=== PATIENT | female | born 1965 | race Two or more races ===

== ENCOUNTER 2017-03-26 01:58 | Emergency (ER) | payer SELFPAY ==
[~2017-03-26] VITALS: Ht 170.2 cm; Wt 86.2 kg
[~2017-03-26 01:58] MED LIST: CIPROFLOXACIN500 M2 ORAL; IRON SUPPLEMEN325 M1 PO
[2017-03-26 02:30] VITALS: BP 129/78
[2017-03-26] MEDS ORDERED: IBUPROFEN600 MG ORAL (02:37)
[2017-03-26] MEDS ORDERED: ROBAXIN-750750 MG PO (02:37)
[2017-03-26] MEDS ORDERED: Methocarbamol 750mg tab ORAL ONE (02:45)
[2017-03-26 04:00] VITALS: BP 125/74
[2017-03-26 04:05] VITALS: BP 125/74
--- NOTE | 2017-03-26 16:38 | Emergency Room Report ---
History of Present Illness General Chief Complaint: Neck Pain Source: Patient Present Illness HPI 51 yo F pw L sided neck and shoulder pain x 1 day. worse with movement denies trauma. feels like muscle spasms. has had this in the past. no chest pain sob. no arm weakness or numbness. no sousa/blurry vision. no trauma Allergies: Coded Allergies: No Known Allergies (Unverified , 01/05/14) Patient History Past Medical History: see triage record Past Surgical History: none Pertinent Family History: none Last Menstrual Period: today Reviewed Nursing Documentation: PMH: Agreed, PSxH: Agreed Nursing Documentation-PMH Hx Asthma: Yes Review of Systems All Other Systems: negative except mentioned in HPI Physical Exam Vital Signs Date Time Temp Pulse Resp B/P (MAP) Pulse Ox O2 Delivery O2 Flow Rate FiO2 03/26/17 02:09 98.2 91 18 129/78 97 Room Air Sp02 EP Interpretation: reviewed, normal General Appearance: normal inspection, well appearing, no apparent distress, alert, GCS 15, non-toxic Head: normocephalic, atraumatic Eyes: bilateral eye normal inspection, bilateral eye PERRL, bilateral eye EOMI ENT: normal ENT inspection, normal pharynx, normal voice, moist mucus membranes Neck: supple, other - FROM, paraspinal L sided cervical tenderness no midline tendenress. tenderness along deltoid, no torticollis Respiratory: normal inspection, lungs clear, normal breath sounds, no respiratory distress, no retraction, no wheezing, speaking full sentences, chest symmetrical Cardiovascular #1: normal inspection, regular rate, rhythm, no edema, normal capillary refill Cardiovascular #2: 2+ radial (R), 2+ radial (L) Gastrointestinal: normal inspection, non tender, soft, non-distended, no guarding Musculoskeletal: normal inspection, back normal, normal range of motion, non- tender Neurologic: normal inspection, alert, oriented x3, responsive, motor strength/ tone normal, sensory intact, normal gait, speech normal Psychiatric: normal inspection, judgement/insight normal, memory normal Skin: normal inspection, normal color, no rash, warm/dry, well hydrated, normal turgor Medical Decision Making Diagnostic Impression: Primary Impression: Neck pain ER Course 51 yo F with L sided neck pain likely musculoskeletal/muscular spasm not c/w CA dissection / fracture / cord compression given absence of neurological signs/sx, pt appears nontoxic Plan Motrin/robaxin ER course Pt feels much better with meds. better rom Dispo: PT DCed to home with pMD fu Last Vital Signs Date Time Temp Pulse Resp B/P (MAP) Pulse Ox O2 Delivery O2 Flow Rate FiO2 03/26/17 04:05 98.1 77 17 125/74 100 Room Air Disposition: HOME, SELF-CARE Condition: Improved Scripts Methocarbamol* (ROBAXIN-750*) 750 Mg Tablet 750 MG PO QID, #28 TAB 0 Refills Prov: Miller Grewal M.D. 03/26/17 Ibuprofen* (MOTRIN*) 600 Mg Tablet 600 MG ORAL Q8H Y for For Pain, #30 TAB 0 Refills Prov: Miller Grewal M.D. 03/26/17 Referrals: NOT CHOSEN [facility]/,REFERRING (PCP) Patient Instructions: Musculoskeletal Pain Miller Grewal M.D. Mar 26, 2017 16:38
== END 2017-03-26 04:05 | disposition home or self-care (01) ==
LOC: EMR 02:25
DX: M54.2 Cervicalgia (principal); J45.909 Unspecified asthma, uncomplicated
CPT/HCPCS: 99284

== ENCOUNTER 2018-01-01 00:22 | Emergency (ER) | payer SELFPAY ==
[~2018-01-01] VITALS: Ht 165.1 cm; Wt 86.2 kg
[~2018-01-01 00:22] MED LIST changes: +IBUPROFEN600 MG ORAL; +ROBAXIN-750750 MG PO
[2018-01-01 01:28] VITALS: BP 123/76
--- NOTE | 2018-01-01 01:32 | Emergency Room Report ---
History of Present Illness General Chief Complaint: General Complaint Source: Patient Present Illness HPI Patient presents with generalize pain. She had triage left without being seen. I did not see the patient. Allergies: Coded Allergies: No Known Allergies (Unverified , 01/05/14) Patient History Last Menstrual Period: none Nursing Documentation-[facility] Hx Asthma: Yes Physical Exam Vital Signs Date Time Temp Pulse Resp B/P (MAP) Pulse Ox O2 Delivery O2 Flow Rate FiO2 01/01/18 00:41 98.1 66 18 123/76 100 Ambu-Bag 98.1 Medical Decision Making Diagnostic Impression: Primary Impression: Episode of generalized weakness Last Vital Signs Date Time Temp Pulse Resp B/P (MAP) Pulse Ox O2 Delivery O2 Flow Rate FiO2 01/01/18 01:28 98.1 66 18 123/76 100 Ambu-Bag 98.1 Status: unchanged Disposition: LEFT W/OUT BEING SEEN Condition: Stable GERMAN WHITTAKER M.D. Jan 01, 2018 01:32
== END 2018-01-01 01:00 | disposition left against medical advice (07) ==
LOC: EMR 00:50
DX: R52 Pain, unspecified (principal); Z53.21 Procedure and treatment not carried out due to patient leaving prior to being seen by health care provider; J45.909 Unspecified asthma, uncomplicated
CPT/HCPCS: 99281

== ENCOUNTER 2019-02-21 20:38 | Emergency (ER) | payer MEDICAID ==
[~2019-02-21] VITALS: Ht 154.9 cm; Wt 88.5 kg
[2019-02-21 20:48] VITALS: BP 126/77
[2019-02-21] MEDS ORDERED: FLUTICASONE PRO16 G1 NASAL (20:48)
[2019-02-21] MEDS ORDERED: ALLEGRA ALLERG180 M1 PO (20:48)
[2019-02-21] MEDS ORDERED: PREDNISONE20 MG ORAL (20:48)
--- NOTE | 2019-02-21 20:50 | NUR ---
ED Nurse Note: pt walked in to ED C/O upp ABD julia for one day. pt stated she took mylanta but has no relief. pt is alert x4. VSS.
[2019-02-21] MEDS ORDERED: Omnipaque-300 100ml vial INJ PRN (21:15)
[2019-02-21] MEDS ORDERED: Dicyclomine HCl 10mg/5ml oral soln ORAL ONE (21:15)
[2019-02-21] MEDS ORDERED: Mylanta II UD 30ml ORAL ONE (21:15)
[2019-02-21] MEDS ORDERED: Lidocaine 2% Visc 15ml soln ORAL ONE (21:15)
[2019-02-21 21:39] LABS: APPEARANCE,URINE SLIGHTLY CLOUDY; BILIRUBIN, URINE NEGATIVE (NEGATIVE); COLOR,URINE PALE YELLOW; GLUCOSE, URINE (UA) NEGATIVE (NEGATIVE); KETONES,URINE NEGATIVE (NEGATIVE); LEUKOCYTE ESTERASE ,URINE 3+ (NEGATIVE); NITRITE,URINE NEGATIVE (NEGATIVE); PH,URINE 8 (4.5-8.0); PROTEIN,URINE NEGATIVE (NEGATIVE); UROBILINOGEN,URINE NORMAL MG/DL (0.0-1.0)
[2019-02-21 21:39] LABS: ANION GAP 8 mmol/L (5-15); BLOOD UREA NITROGEN 9 mg/dL (7-18); CARBON DIOXIDE 29 MMOL/L (21-32); CHLORIDE 102 MMOL/L (98-107); CREATININE 0.8 MG/DL (0.55-1.30); POTASSIUM 3.7 MMOL/L (3.5-5.1); SODIUM 139 MMOL/L (136-145)
[2019-02-21 21:40] LABS: BASOPHILS % (AUTO) 0.9 % (0.0-2.0); EOSINOPHILS % (AUTO) 3.1 % (0.0-3.0); HEMATOCRIT 45.5 % (37.0-47.0); HEMOGLOBIN 15.3 G/DL (12.0-16.0); LYMPHOCYTES % (AUTO) 40.8 % (20.0-45.0); MEAN CORPUSCULAR VOLUME 93 FL (80-99); MONOCYTES % (AUTO) 11.2 % (1.0-10.0); PLATELET COUNT 213 K/UL (150-450); RED BLOOD COUNT 4.89 M/UL (4.20-5.40); RED CELL DISTRIBUTION WIDTH 11.1 % (11.6-14.8); WHITE BLOOD COUNT 8.9 K/UL (4.8-10.8)
[2019-02-21 21:46] LABS: ALANINE AMINOTRANSFERASE 65 U/L (12-78); ALBUMIN 3.4 G/DL (3.4-5.0); ALBUMIN/GLOBULIN RATIO 0.8 (1.0-2.7); ALKALINE PHOSPHATASE 257 U/L (46-116); ASPARTATE AMINO TRANSFERASE 30 U/L (15-37); BILIRUBIN,TOTAL 0.4 MG/DL (0.2-1.0); INR 0.9 (0.9-1.1)
--- NOTE | 2019-02-21 22:05 | NUR ---
ED Nurse Note: pt went to x ray
--- NOTE | 2019-02-21 22:34 | Diagnostic Imaging Report ---
Clinical Indication: Upper abdominal pain beginning earlier today Technique: No oral contrast utilized, per emergency room physician request IV administration nonionic contrast. Venous phase spiral acquisition obtained through the abdomen and pelvis. Multiplanar reconstructions were generated. Total dose length product 1886 mGycm. CTDIvol(s) 30 mGy. Dose reduction achieved using automated exposure control Comparison: none Findings: The appendix is normal. No evidence of colonic diverticulosis or diverticulitis. No small bowel distention. No free or loculated intraperitoneal gas or fluid is evident. The distal esophagus, stomach, duodenum are unremarkable. The gallbladder is nondistended. The liver, bile ducts, pancreas, spleen, adrenals, kidneys are unremarkable. The uterus is enlarged and heterogeneous, consistent with fibroids. There is an intrauterine device in place, situated somewhat low. No pelvic mass or adenopathy otherwise. The bones are unremarkable. The included lung bases are clear. Impression: No acute abnormality. Intrauterine device in place, somewhat low within the uterus This agrees with the preliminary interpretation provided overnight by [facility] teleradiology service. The CT scanner at [facility] is accredited by the [employer] and the scans are performed using protocols designed to limit radiation exposure to as low as reasonably achievable to attain images of sufficient resolution adequate for diagnostic evaluation.
[2019-02-21] MEDS ORDERED: NAPROXEN250 MG ORAL (23:28)
--- NOTE | 2019-02-21 23:32 | Emergency Room Report ---
History of Present Illness General Chief Complaint: Abdominal Pain Source: Patient Present Illness HPI 53-year-old female presents with generalized abdominal pain x1 day no aggravating or alleviating factors severity is mild, intermittent, squeezing/ achy in nature no nausea no vomiting no chest pain no shortness of breath, no diarrhea patient presents for evaluation of her abdominal pain. Allergies: Coded Allergies: No Known Allergies (Unverified , 01/05/14) Patient History Past Medical History: see triage record Now: No Reviewed Nursing Documentation: PMH: Agreed; PSxH: Agreed Nursing Documentation-PMH Past Medical History: No History, Except For Hx Asthma: Yes Review of Systems All Other Systems: negative except mentioned in HPI Physical Exam Vital Signs Date Time Temp Pulse Resp B/P (MAP) Pulse Ox O2 Delivery O2 Flow Rate FiO2 02/21/19 20:44 99.0 101 14 128/77 (94) 96 Room Air 02/21/19 20:48 98 Sp02 EP Interpretation: reviewed, normal General Appearance: well appearing, no apparent distress, alert Head: normocephalic, atraumatic Eyes: bilateral eye PERRL, bilateral eye EOMI ENT: uvula midline, moist mucus membranes Neck: supple, thyroid normal, supple/symm/no masses Respiratory: lungs clear, no respiratory distress, no retraction, no accessory muscle use Cardiovascular #1: normal peripheral pulses, regular rate, rhythm, no edema, no gallop, no murmur Gastrointestinal: non tender, soft, no guarding, no rebound Musculoskeletal: normal inspection Neurologic: alert, oriented x3 Psychiatric: mood/affect normal Skin: no rash, warm/dry Medical Decision Making ER Course 53-year-old female presents with generalized abdominal pain, initially upper, has since resolved while in the ED without any acute intervention no acute pain meds were given. Differential diagnosis includes diverticulitis, appendicitis, cholecystitis Patient found to have a malpositioned IUD that is moving around, possible referred pain Repeat abdominal exam patient is soft nontender Will disposition patient home with return precautions, counseled patient to follow-up with [facility] Laboratory Tests Test 02/21/19 21:12 02/21/19 21:14 Urine Color Pale yellow Urine Appearance Slightly cloudy Urine pH 8 (4.5-8.0) Urine Specific Spring 1.010 (1.005-1.035) Urine Protein Negative (NEGATIVE) Urine Glucose (UA) Negative (NEGATIVE) Urine Ketones Negative (NEGATIVE) Urine Blood Negative (NEGATIVE) Urine Nitrite Negative (NEGATIVE) Urine Bilirubin Negative (NEGATIVE) Urine Urobilinogen Normal MG/DL (0.0-1.0) Urine Leukocyte Esterase 3+ (NEGATIVE) H Urine RBC 0-2 /HPF (0 - 2) Urine WBC 10-15 /HPF (0 - 2) H Urine Squamous Epithelial Cells Moderate /LPF (NONE/OCC) H Urine Bacteria Few /HPF (NONE) White Blood Count 8.9 K/UL (4.8-10.8) Red Blood Count 4.89 M/UL (4.20-5.40) Hemoglobin 15.3 G/DL (12.0-16.0) Hematocrit 45.5 % (37.0-47.0) Mean Corpuscular Volume 93 FL (80-99) Mean Corpuscular Hemoglobin 31.3 PG (27.0-31.0) H Mean Corpuscular Hemoglobin Concent 33.7 G/DL (32.0-36.0) Red Cell Distribution Width 11.1 % (11.6-14.8) L Platelet Count 213 K/UL (150-450) Mean Platelet Volume 7.5 FL (6.5-10.1) Neutrophils (%) (Auto) 44.0 % (45.0-75.0) L Lymphocytes (%) (Auto) 40.8 % (20.0-45.0) Monocytes (%) (Auto) 11.2 % (1.0-10.0) H Eosinophils (%) (Auto) 3.1 % (0.0-3.0) H Basophils (%) (Auto) 0.9 % (0.0-2.0) Prothrombin Time 9.4 SEC (9.30-11.50) Prothrombin Time INR 0.9 (0.9-1.1) PTT 24 SEC (23-33) Sodium Level 139 MMOL/L (136-145) Potassium Level 3.7 MMOL/L (3.5-5.1) Chloride Level 102 MMOL/L (98-107) Carbon Dioxide Level 29 MMOL/L (21-32) Anion Gap 8 mmol/L (5-15) Blood Urea Nitrogen 9 mg/dL (7-18) Creatinine 0.8 MG/DL (0.55-1.30) Estimate Glomerular Filtration Rate > 60 mL/min (>60) Glucose Level 117 MG/DL (74-106) H Calcium Level 9.0 MG/DL (8.5-10.1) Total Bilirubin 0.4 MG/DL (0.2-1.0) Aspartate Amino Transferase (AST) 30 U/L (15-37) Alanine Aminotransferase (ALT) 65 U/L (12-78) Alkaline Phosphatase 257 U/L (46-116) H Troponin I 0.000 ng/mL (0.000-0.056) Total Protein 7.7 G/DL (6.4-8.2) Albumin 3.4 G/DL (3.4-5.0) Globulin 4.3 g/dL Albumin/Globulin Ratio 0.8 (1.0-2.7) L Lipase 236 U/L (73-393) EKG Diagnostic Results EKG Time: 21:18 EP Interpretation: Sinus tachycardia, rate [address] elevations, normal axis QTC 430 Chest X-Ray Diagnostic Results Chest X-Ray Diagnostic Results : Chest X-Ray Ordered: Yes # of Views/Limited/Complete: 1 View Indication: Other - abdominal pain EP Interpretation: Yes Interpretation: no consolidation, no effusion, no pneumothorax, no acute cardiopulmonary disease Impression: No acute disease Electronically Signed by: Dewey Christianson MD CT/MRI/US Diagnostic Results CT/MRI/US Diagnostic Results : Impression Procedure: CT Abdomen Pelvis w/Contrast CT ABDOMEN + PELVIS With Contrast: Lower lungs: No acute findings. Liver: Unremarkable. Gallbladder: Unremarkable. Spleen, pancreas, and adrenal glands: No acute findings. Kidneys: No hydronephrosis or obstructive nephrolithiasis. Bowel: No bowel obstruction. Appendix: No convincing appendicitis. Bladder: Unremarkable. Pelvic organs: IUD appears to be placed in the lower uterine segment cervix area. Correlate with IUD malpositioning. Vessels: No aortic aneurysm. Bones: No acute fracture. Dictated By: SANGEETHA MCALLISTER M.D. Electronically Signed By: Signed Date/Time CC: Last Vital Signs Date Time Temp Pulse Resp B/P (MAP) Pulse Ox O2 Delivery O2 Flow Rate FiO2 02/21/19 20:48 98.8 98 16 126/77 97 Room Air 02/21/19 20:48 98 Disposition: HOME, SELF-CARE Condition: Stable Scripts Naproxen* (NAPROSYN*) 250 Mg Tablet 250 MG ORAL BID PRN for For Pain, #20 TAB 0 Refills Prov: Dewey Christianson MD 02/21/19 Referrals: NOT CHOSEN IPA/MD,REFERRING (PCP) [facility] Suhas Krzysztofjose david [facility] Patient Instructions: Abdominal Pain, Adult Additional Instructions: The patient was provided with discharge instructions, notified to follow-up with a primary care doctor and or specialist in the next 24-48 hours, and to return to the ED if they have worsening of their symptoms. Please note that this report is being documented using DRAGON technology. This can lead to erroneous entry secondary to incorrect interpretation by the dictating instrument. PLEASE HAVE IUD REMOVED AT [facility], PLEASE FOLLOW-UP WITH [facility] Dewey Torres MD Feb 21, 2019 23:32
[2019-02-21 23:38] VITALS: BP 135/84
--- NOTE | 2019-02-21 23:38 | NUR ---
ER DISCHARGE NOTE: Patient is cleared to be discharged per ERMD, pt is aox4, on room air, with stable vital signs. pt was given dc and prescription instructions, pt was able to verbalize understanding, pt id band and iv site removed without complications. pt is able to ambulate with steady gait. pt took all belongings.
--- NOTE | 2019-02-22 14:49 | Cardiology Report ---
APPROVED REPORT EKG Measurement Heart [id number] Sinus tachycardia Otherwise normal ECG
--- NOTE | 2019-02-22 17:19 | Diagnostic Imaging Report ---
Indication: Chest pain Technique: One view of the chest Comparison: none Findings: Lungs and pleural spaces are clear. Heart size is normal. Impression: No acute process
== END 2019-02-21 23:38 | disposition home or self-care (01) ==
LOC: EMR 21:25
DX: R10.84 Generalized abdominal pain (principal); R07.9 Chest pain, unspecified; T83.89XA Other specified complication of genitourinary prosthetic devices, implants and grafts, initial encounter; Y84.8 Other medical procedures as the cause of abnormal reaction of the patient, or of later complication, without mention of misadventure at the time of the procedure; Y92.9 Unspecified place or not applicable
CPT/HCPCS: 36415; 71045; 74177; 80053; 81003; 83690; 84484; 85025; 85610; 85730; 87086; 93005; 96361; 96374; 96375; J2405; Q9967; S0028; Z7502; 99284

== ENCOUNTER 2019-03-30 13:35 | Emergency (ER) | payer MEDICAID ==
[~2019-03-30] VITALS: Ht 167.6 cm; Wt 77.1 kg
[~2019-03-30 13:35] MED LIST changes: +ALLEGRA ALLERG180 M1 PO; +FLUTICASONE PRO16 G1 NASAL; +NAPROXEN250 MG ORAL; +PREDNISONE20 MG ORAL
[2019-03-30] MEDS ORDERED: NKM (13:48)
--- NOTE | 2019-03-30 14:00 | NUR ---
ED Nurse Note: pt walked in to ER from home due to general body ache 03/09. pt aao x4 and ambulatory. skin clean and intact. calm and cooperative. no acute distress noted at this time. VSS as documented. pt denied trauma.
[2019-03-30 14:25] VITALS: BP 115/75
--- NOTE | 2019-03-30 14:35 | Emergency Room Report ---
History of Present Illness General Chief Complaint: Pain Source: Patient Present Illness HPI 53-year-old female presents to the emergency department complaining of persistent 8 out of 10 severity generalized myalgias x1 week. Patient denies any other symptoms she denies fevers, chills, nausea, vomiting, cough, nasal congestion or headaches. Patient denies significant past medical history she states she is not prescribed any medications. Patient denies strenuous activities. Patient reports she has been taking magnesium this week in an attempt to relieve her symptoms however she states her symptoms have remained the same if not slightly worse and she also began having loose stools 2 days ago. Patient denies blood in the stools or black tarry stools. Patient denies weakness or fatigue. She denies history of arthritis. No other aggravating or relieving factors. Patient denies having any other additional symptoms. Denies chest pain, abdominal pain, shortness of breath or dizziness. Allergies: Coded Allergies: No Known Allergies (Unverified , 01/05/14) Patient History Past Medical History: see triage record Past Surgical History: none Pertinent Family History: none Last Menstrual Period: 2013 Now: No Reviewed Nursing Documentation: PMH: Agreed; PSxH: Agreed Nursing Documentation-PMH Past Medical History: No History, Except For Hx Asthma: Yes Review of Systems All Other Systems: negative except mentioned in HPI Physical Exam Vital Signs Date Time Temp Pulse Resp B/P (MAP) Pulse Ox O2 Delivery O2 Flow Rate FiO2 03/30/19 13:46 98.1 95 16 115/75 (88) 96 Room Air Sp02 EP Interpretation: reviewed, normal General Appearance: no apparent distress, alert, GCS 15, non-toxic Head: normocephalic, atraumatic Eyes: bilateral eye normal inspection, bilateral eye PERRL ENT: hearing grossly normal, normal voice Neck: full range of motion, no meningismus, no bony tend Respiratory: chest non-tender, lungs clear, normal breath sounds, no accessory muscle use, no wheezing, speaking full sentences Cardiovascular #1: regular rate, rhythm Gastrointestinal: normal bowel sounds, non tender, soft, non-distended, no guarding Genitourinary: normal inspection, no CVA tenderness Musculoskeletal: back normal, gait/station normal, normal range of motion, non- tender Neurologic: alert, oriented x3, responsive, motor strength/tone normal, sensory intact, speech normal, grossly normal Psychiatric: judgement/insight normal Lymphatic: no adenopathy Medical Decision Making PA Attestation Dr. Adan is my supervising Physician whom patient management has been discussed with. Diagnostic Impression: Primary Impression: Myalgia ER Course 53-year-old female presents to the emergency department complaining of persistent 8 out of 10 severity generalized myalgias x1 week. Patient denies any other symptoms she denies fevers, chills, nausea, vomiting, cough, nasal congestion or headaches. Patient denies significant past medical history she states she is not prescribed any medications. Patient denies strenuous activities. Patient reports she has been taking magnesium this week in an attempt to relieve her symptoms however she states her symptoms have remained the same if not slightly worse and she also began having loose stools 2 days ago. Patient denies blood in the stools or black tarry stools. Patient denies weakness or fatigue. She denies history of arthritis. No other aggravating or relieving factors. Patient denies having any other additional symptoms. Denies chest pain, abdominal pain, shortness of breath or dizziness. Ddx considered: viral syndrome, epidural abscess, fracture, sprain/strain, meningitis, spinal chord injur, myalgia, autoimmune disorder, calcium or potassium abnormality, medication SE just to name a few. Vital signs reviewed and are during ED visit. Pt. is afebrile with no signs of infection No new symptoms, and denies recent trauma. No saddle anesthesia noted, Pt. denies incontinence Neurovascular is intact- No evidence of neurological deficit. FROM with pain. Pt. is ambulatory. No specific localized ttp. ORDERS: none warranted at this time. INTERVENTIONS: - pt. declines interventions and requests just an rx. D/W Pt. conservative treatment and pcp follow up in 3-5 days. refrain from strenuous activities. Pt .given ED return precautions for worsening or new symptoms. DISCHARGE: At this time pt. is stable for d/c to home. Will provide printed patient care instructions, and any necessary prescriptions. Care plan and follow up instructions have been discussed with the patient prior to discharge. Last Vital Signs Date Time Temp Pulse Resp B/P (MAP) Pulse Ox O2 Delivery O2 Flow Rate FiO2 03/30/19 14:25 98.1 81 16 115/75 96 Room Air Disposition: HOME, SELF-CARE Condition: Stable Referrals: [facility],REFERRING (PCP) Patient Instructions: Muscle Pain, Adult Additional Instructions: Take medications as directed. Follow up with a Primary Care Provider in 3-5 days, even if your symptoms have resolved. --Please review list of primary care clinics, if you do not already have a primary care provider Return sooner to ED if new symptoms occur, or current symptoms become worse. Do not drink alcohol, drive, or operate heavy machinery while taking Robaxin ( Muscle Relaxers) as this may cause drowsiness. - Please note that this Emergency Department Report was dictated using [employer]ood[employer]papier mache molder technology software, occasionally this can lead to erroneous entry secondary to interpretation by the dictation equipment. Ana Cristina Villagomez Mar 30, 2019 14:35
[2019-03-30] MEDS ORDERED: IBUPROFEN600 MG ORAL (14:36)
[2019-03-30] MEDS ORDERED: ROBAXIN-750750 MG PO (14:36)
[2019-03-30 14:45] VITALS: BP 122/70
--- NOTE | 2019-03-30 14:45 | NUR ---
ER DISCHARGE NOTE: Patient is cleared to be discharged per PA, pt is aox4, on room air, with stable vital signs. pt left without getting her DC papers. pt is able to ambulate with steady gait. pt took all belongings.
== END 2019-03-30 14:45 | disposition home or self-care (01) ==
LOC: EMR 14:20
DX: M79.10 Myalgia, unspecified site (principal); J45.909 Unspecified asthma, uncomplicated
CPT/HCPCS: 99282

== ENCOUNTER 2019-08-17 16:46 | Emergency (ER) | payer MEDICAID, OTHER ==
[~2019-08-17] VITALS: Ht 170.2 cm; Wt 72.6 kg
[~2019-08-17 16:46] MED LIST changes: +NKM
[2019-08-17 16:50] VITALS: BP 97/66
--- NOTE | 2019-08-17 18:19 | Emergency Room Report ---
History of Present Illness General Chief Complaint: Flu Like Symptoms Source: Patient Present Illness HPI 53-year-old female presents to the emergency department complaining of 4 out of 10 severity sore throat, generalized body aches, persistent dry cough x4 days. Patient reports he has a history of asthma and she has been using her inhaler more than normal. Patient denies severe wheezing, dyspnea or bluish color to the lips. She reports she is vaccinated and is up-to-date with vaccinations except for this years flu vaccine. She states she just returned from [place] 4 days ago. She denies fevers or chills. She denies headache, neck pain/ stiffness, photophobia, chest pain or palpitations. She reports nasal congestion and sinus pressure. COVID-19 risk:Contact w/high r: No COVID-19 risk:Travel to [facility]: Yes Has patient experienced carmen: Yes Coronavirus symptoms experienc: Cough, Flu-Like Symptoms Allergies: Coded Allergies: No Known Allergies (Unverified , 01/05/14) Patient History Past Medical History: see triage record Past Surgical History: none Pertinent Family History: none Now: No Reviewed Nursing Documentation: PMH: Agreed; PSxH: Agreed Nursing Documentation-PMH Past Medical History: No History, Except For Hx Asthma: Yes Review of Systems All Other Systems: negative except mentioned in HPI Physical Exam Vital Signs Date Time Temp Pulse Resp B/P (MAP) Pulse Ox O2 Delivery O2 Flow Rate FiO2 08/17/19 16:48 98.4 92 15 97/66 (76) 98 Room Air Sp02 EP Interpretation: reviewed, normal General Appearance: no apparent distress, alert, GCS 15, non-toxic Head: normocephalic, atraumatic Eyes: bilateral eye normal inspection, bilateral eye PERRL ENT: hearing grossly normal, normal pharynx, normal voice, TMs + canals normal , uvula midline, pharyngeal erythema - no exudates, no tonsillar swelling Neck: full range of motion, no meningismus Respiratory: chest non-tender, lungs clear, normal breath sounds, no respiratory distress, no accessory muscle use, no wheezing, decreased breath sounds, speaking full sentences Cardiovascular #1: regular rate, rhythm, normal capillary refill Musculoskeletal: normal range of motion, gait/station normal, non-tender Neurologic: alert, motor strength/tone normal, oriented x3, sensory intact, responsive, speech normal Psychiatric: judgement/insight normal Skin: normal color, normal inspection Lymphatic: no adenopathy Medical Decision Making PA Attestation Dr. Davila is my supervising Physician whom patient management has been discussed with. Diagnostic Impression: Primary Impression: Bronchitis ER Course Pt. presents to the ED with s/sx c/w URI in the setting of a local COVID-19 Outbreak. - This PT. was triaged outside the facility in a designated staging area and placed into isolation tent. - Full PPE for airborne/droplet isolation (booties, Gown, doubled nitrile gloves, N95 Mask covered by Surgical mask w. face shield, and hair net) was donned in the designated HCP staging area prior to pt. interaction. 53-year-old female presents to the emergency department complaining of 4 out of 10 severity sore throat, generalized body aches, persistent dry cough x4 days. Patient reports he has a history of asthma and she has been using her inhaler more than normal. Patient denies severe wheezing, dyspnea or bluish color to the lips. She reports she is vaccinated and is up-to-date with vaccinations except for this years flu vaccine. She states she just returned from [place] 4 days ago. She denies fevers or chills. She denies headache, neck pain/ stiffness, photophobia, chest pain or palpitations. She reports nasal congestion and sinus pressure. Ddx considered but are not limited to URI, pneumonia, PE, strep pharyngitis, meningitis, COVID-19 Vital signs: Pt.is afebrile VS are WNL H&PE are most consistent with bronchitis ORDERS: - CXR: WNL - Influenza A & B: Negative ED INTERVENTIONS: None required at this time. PT. ELOPED PRIOR TO RECEIVING D/C PAPERWORK and RX's DISCHARGE: At this time pt. is stable for d/c to home. Will provide printed patient care instructions, and any necessary prescriptions. Care plan and follow up instructions have been discussed with the patient prior to discharge. Chest X-Ray Diagnostic Results Chest X-Ray Diagnostic Results : Chest X-Ray Ordered: Yes # of Views/Limited/Complete: 1 View Indication: Shortness of Breath PA Xray: Interpretation reviewed, by supervising MD, and agrees with findings. Interpretation: no consolidation, no effusion, no pneumothorax, no acute cardiopulmonary disease Impression: No acute disease Electronically Signed by: Ana Cristina Villagomez PA-C Last Vital Signs Date Time Temp Pulse Resp B/P (MAP) Pulse Ox O2 Delivery O2 Flow Rate FiO2 08/17/19 16:50 98.4 92 15 97/66 98 Room Air Disposition: HOME, SELF-CARE Condition: Stable Scripts D-Methorphan Hb/Prometh Hcl* (PROMETHAZINE-DM SYRUP*) 118 Ml Syrup 5 ML ORAL Q6H PRN for For Cough, #120 ML 0 Refills Prov: Ana Cristina Villagomez 08/17/19 Prednisone* (PREDNISONE*) 20 Mg Tablet 40 MG ORAL DAILY for 5 Days, #10 TAB Prov: Ana Cristina Villagomez 08/17/19 Referrals: NON PHYSICIAN (PCP) Patient Instructions: Acute Bronchitis, [id number] Additional Instructions: Take medications as directed. Follow up with a Primary Care Provider in 3-5 days, even if your symptoms have resolved. --Please review list of primary care clinics, if you do not already have a primary care provider Return sooner to ED if new symptoms occur, or current symptoms become worse. - Please note that this Emergency Department Report was dictated using [employer] mechanic technology software, occasionally this can lead to erroneous entry secondary to interpretation by the dictation equipment. Ana Cristina Villagomez Aug 17, 2019 18:19
[2019-08-17 18:30] VITALS: BP 97/66
[2019-08-17] MEDS ORDERED: PREDNISONE20 MG ORAL (18:40)
[2019-08-17] MEDS ORDERED: PROMETHAZINE-D118 ML ORAL (18:40)
--- NOTE | 2019-08-18 10:34 | Diagnostic Imaging Report ---
Indication: Cough Technique: One view of the chest Comparison: 02/21/2019 Findings: Lungs and pleural spaces are clear. Heart size is normal. No significant change Impression: No acute process
== END 2019-08-17 18:30 | disposition left against medical advice (07) ==
LOC: EMR 17:15
DX: J40 Bronchitis, not specified as acute or chronic (principal)
CPT/HCPCS: 71045; 86710; Z7502; 99283